=== PATIENT | male | born 1950 | race Two or more races ===

== ENCOUNTER 2024-05-24 18:04 | Inpatient (IN) | payer OTHER ==
[~2024-05-24] VITALS: Ht 200.7 cm; Wt 97.6 kg
[2024-05-24 19:09] LABS: Basophils # (auto) 0 10 ^3/uL (0-0.2); Basophils % (auto) 0.5 % (0.0-2.0); Eosinophils # (auto) 0.1 10 ^3/uL (0-0.8); Eosinophils % (auto) 2.4 % (0.0-7.0); Hematocrit 42.8 % (41.0-53.0); Hemoglobin 14.4 g/dL (13.5-17.5); Lymphocytes # (auto) 1.2 10 ^3/uL (0.4-5.4); Lymphocytes % (auto) 23.6 % (10.0-50.0); Mean Corpuscular Hemoglobin 32.7 pg (28.0-32.0); Mean Corpuscular Hgb Conc. 33.6 g/dL (32.0-36.0); Mean Corpuscular Volume 97.4 fL (80.0-100.0); Monocytes # (auto) 0.3 10 ^3/uL (0-1.3); Monocytes % (auto) 5.9 % (0.0-12.0); Neutrophils # (auto) 3.5 10 ^3/uL (1.6-8.6); Neutrophils % (auto) 67.6 % (37.0-80.0); Nucleated Red Blood Cells % 0.1 %; Platelet Count (auto) 176 10^3/uL (140-450); Red Cell Distribution Width 14.8 % (11.8-14.3); White Blood Cell 5.2 10^3/uL (4.4-10.8)
[2024-05-24] MEDS: dilTIAZem 25 MG/5 ML VIAL IV ONE ×2 (19:14→22:28)
[2024-05-24 19:47] LABS: Alanine Aminotransferase 43 U/L (7-40); Albumin 4.2 g/dL (3.2-4.8); Alkaline Phosphatase 154 U/L (46-116); Anion Gap 9 (5-15); Aspartate Aminotransferase 21 U/L (13-40); BUN/Creatinine Ratio 16.3 (10.0-20.0); Bilirubin, Total 1.1 mg/dL (0.2-1.0); Blood Urea Nitrogen 27 mg/dL (9-23); Calcium 9.9 mg/dL (8.7-10.4); Carbon Dioxide 18 mmol/L (20-31); Chloride 116 mmol/L (98-107); Glucose 79 mg/dL (74-106); Potassium 3.8 mmol/L (3.5-5.1); Sodium 143 mmol/L (136-145)
[2024-05-24 19:48] LABS: Total Protein 6.4 g/dL (5.7-8.2)
[2024-05-24 22:20] VITALS: RESP 17; O2SAT 97
[2024-05-24] MEDS: dilTIAZem 125mg/125ml BAG KIT 125 ML IV ONE (22:28)
[2024-05-25] VITALS (15 sets, daily range): BP systolic 109–151; BP diastolic 83–123; PULSE 65–125; RESP 16–24; TEMP 97.3–98.8; O2SAT 93–98
[2024-05-25] MEDS ORDERED: NITROGLYCERIN 0.4 MG SL TAB SL PRN
[2024-05-25] MEDS ORDERED: ACETAMINOPHEN 325 MG TAB PO PRN
[2024-05-25] MEDS ORDERED: MORPHINE SULFATE INJ 2 MG/ml SYRG IV PRN
[2024-05-25] MEDS: dilTIAZem 125mg/125ml BAG KIT 100 ML IV SCH
[2024-05-25] MEDS ORDERED: ONDANSETRON HCL 4 MG/2 ML VIAL IV PRN
[2024-05-25] MEDS: ALBUTEROL SULF 2.5 MG/0.5ML(0.5%) NEB SOLN NEB PRN (01:32)
[2024-05-25 05:41] LABS: Chloride 112 mmol/L (98-107); Potassium 3.4 mmol/L (3.5-5.1); Sodium 142 mmol/L (136-145)
[2024-05-25 05:42] LABS: Anion Gap 11 (5-15); Carbon Dioxide 19 mmol/L (20-31)
[2024-05-25 05:47] LABS: BUN/Creatinine Ratio 15.9 (10.0-20.0); Blood Urea Nitrogen 24 mg/dL (9-23); Glucose 100 mg/dL (74-106)
[2024-05-25] MEDS ORDERED: POTASSIUM EFFERVESENT TAB 25 MEQ GT STA (08:19)
[2024-05-25] MEDS: POTASSIUM EFFERVESENT TAB 25 MEQ PO ONE (08:45)
[2024-05-25] MEDS: AMIODARONE BOLUS KIT 100 ML IV ONE (10:41)
[2024-05-25] MEDS: FUROSEMIDE 20 MG/2 ML VIAL IV SCH (10:41)
[2024-05-25] MEDS: AMIODARONE 450mg/250ml AE 250 ML IV SCH (10:45)
[2024-05-25] MEDS: RIVAROXABAN 20 MG TAB PO SCH (10:45)
[2024-05-25] MEDS: METOPROLOL TARTRATE 50 MG TAB PO SCH (10:47)
[2024-05-25] MEDS: amLODIPine BESYLATE 5 MG TAB PO SCH (10:48)
[2024-05-25] MEDS: LEVALBUTEROL HCL 1.25 MG/3 ML NEB NEB SCH (12:36)
[2024-05-25] MEDS: IPRATROPIUM BROM 0.5 MG/2.5ML INH SOL ONE (12:36)
[2024-05-25] MEDS: MAGNESIUM SULFATE 1GM/100ML 100 ML IV ONE (13:08)
[2024-05-25] MEDS ORDERED: BACI1CHW PO (15:32)
[2024-05-25] MEDS ORDERED: METH1CHW PO (15:32)
[2024-05-25] MEDS ORDERED: MULT-1018 PO (15:32)
[2024-05-25] MEDS: IPRATROPIUM BROM 0.5 MG/2.5ML INH SOL NEB SCH (15:34)
[2024-05-25] MEDS ORDERED: AMIODARONE 450mg/250ml AE 250 ML IV SCH (16:00)
[2024-05-25] MEDS: POTASSIUM CHL 20MEQ/100ML 100 ML IV SCH (19:26)
[2024-05-25] MEDS: ATORVASTATIN 20 MG TAB PO SCH (23:12)
[2024-05-25] MEDS: CARVEDILOL 3.125 MG TAB PO SCH (23:14)
[2024-05-25] MEDS: hydrALAZINE HCL 25 MG TAB PO SCH (23:14)
[2024-05-26 01:00] VITALS: BP 116/76; PULSE 66; RESP 20; TEMP 97.4; O2SAT 92
[2024-05-26] MEDS ORDERED: EMPAGLIFLOZIN 10 MG TAB PO SCH (10:00)
[2024-05-26] MEDS ORDERED: ISOSORBIDE MONONITRATE ER 60 MG TAB PO SCH (10:00)
[2024-05-26] MEDS ORDERED: AMIO200T13 GT (19:18)
== END 2024-05-26 02:22 | disposition left against medical advice (07) | DRG 291 ==
LOC: ER 18:04 → OVERFLOW 23:57 → TELE-WESTW 05-25 14:05
PROVIDERS: ADMIT Nurse Practitioner; ATTEND Student in an Organized Health Care Education/Training Program
DX: I13.0 Hypertensive heart and chronic kidney disease with heart failure and stage 1 through stage 4 chronic kidney disease, or unspecified chronic kidney disease (principal); I50.23 Acute on chronic systolic (congestive) heart failure; N17.0 Acute kidney failure with tubular necrosis; K50.90 Crohn's disease, unspecified, without complications; I48.91 Unspecified atrial fibrillation; I42.9 Cardiomyopathy, unspecified; I50.82 Biventricular heart failure; E87.6 Hypokalemia; J44.9 Chronic obstructive pulmonary disease, unspecified; I08.1 Rheumatic disorders of both mitral and tricuspid valves; F17.210 Nicotine dependence, cigarettes, uncomplicated; N18.9 Chronic kidney disease, unspecified; Z93.3 Colostomy status; Z79.899 Other long term (current) drug therapy; Z79.01 Long term (current) use of anticoagulants; Z90.49 Acquired absence of other specified parts of digestive tract; Z21 Asymptomatic human immunodeficiency virus [HIV] infection status
CPT/HCPCS: 36415; 70450; 71045; 80048; 80053; 83735; 83880; 84443; 84484; 85025; 93005; 93306; 94640; 99291; G0378; J3480